=== PATIENT | female | born 1935 | race Caucasian/White ===

== ENCOUNTER → 2018-11-16 10:22 | Day surgery (SDC) | payer MEDICARE ==
[~2018-11-16 10:22] MED LIST: ACETAMINOPHEN PO SCH; Gabapentin CAP(*) 100 MG PO SCH; Heparin(*) 1000 UNIT/ML 10 ML VIAL CATH LAB IV ONE; Iohexol 350 (CONTRAST) 200 ML MDV IV ONE; Lidocaine 1% INJ* 10 MG/ML 30 ML SDV ONE; Metoprolol Succinate XL TAB* 25 MG PO SCH; Midazolam* 1 MG/ML 5 ML VIAL (5 MG) ONE; Multivitamins/Minera Areds(NF) 1 CAP CAP PO SCH; NON FORMULARY MED* (Losartan Potassium [Cozaar] 50 MG) PO SCH; NON FORMULARY MED* (Omeprazole [Omeprazole] 40 MG) PO SCH; NS 0.9% 1000 ML** 1,000 ML IV SCH; Pramipexole TAB* 0.125 MG PO SCH; VERAPAMIL 2.5 MG/ML 2 ML VIAL ** 5 mg/2 ml ONE; amLODIPine TAB* 5 MG PO SCH; fentaNYL* 50 MCG/ML 2 ML VIAL (100 MCG VIAL) ONE; nitroGLYCERIN DRIP* 25,000 MCG/250 ML BTL ONE
[2018-11-16 14:59] VITALS: BP 154/91
--- NOTE | 2018-11-19 08:17 | CATH ---
*[facility]* [place] [address] Main: [phone] [email or web address] Cardiac Catheterization Patient: Steph Elkins : 1935 Study Date: 11/16/2018 Age: 83 Gender: F HR: Height: 62 in /157.5 cm BSA: 1.78 m^2 Weight: 155.1 lb /70.5 kg BMI: 28.4 kg/m^2 Angledozer Operator: Jose Chacon MD Ordering Physician: Jose Chacon MD Referring Physician: Jose Chacon MD, Stefek Paul, --- Jhonathan Peters - Left coronary angiography. Summary: Left posterior descending: Proximal vessel lesion: There is an 85% stenosis. Indications: Aortic Valve Disorder. Asked by Dr. Griffith perform coronary arteriography as part of TAVR evaluation for patient with reported significant aortic stenosis. History: Risk factors: Hypertension. Dyslipidemia. Family history is significant for coronary artery disease. Medications: The patient received no antianginal therapy in the last two weeks. Labs, prior tests, procedures, and surgery: Blood tests: International normalized ratio (INR) of 1. Serum potassium (K) of 4.6 mEq/l. Serum sodium (Na) of 139 mEq/l. Serum creatinine (current admission) of 1.1 mg/dl. Blood urea nitrogen of 28 mg/dl. Glucose of 104 mg/dl. Platelet count of 255 th/ul. White blood cell count (WBC) of 0.01 th/ul. Red blood cell count (RBC) of 3800 th/ul. Hematocrit of 35.5 %. Hemoglobin (pre-procedure) of 11.9 g/dl. Study data: Study status: Cardiac cath: elective. Location: Catheterization laboratory. Consent: The risks, benefits, and alternatives to the procedure were explained to the patient and/or their healthcare solar sales representative and assessor and written informed consent was obtained. All available pre-procedure labs were reviewed. Height: 157.5 cm. 62 in. Weight: 70.5 kg. 155.1 lb. Body surface area: 1.78 m^2. Body mass index: 28.4 kg/m^2. Procedure: 1. Initial setup. The patient was brought to the laboratory. Surface ECG leads, blood pressure measurements, and pulse oximetric signals were monitored. A baseline seven lead ECG was recorded. A time out was observed per protocol. 2. Skin preparation. The planned puncture sites were prepped and draped in the usual sterile manner. 3. Local anesthesia. 1% lidocaine was administered. 4. Local anesthesia. 1% lidocaine (2 ml) was administered. 5. Right radial artery access. A 6F [place] Slender sheath was advanced into the vessel. 6. Supplemental oxygen. Oxygen, 2 L/min was administered throughout the procedure. 7. Selective left coronary angiography. A 5F TIG 4.0 catheter was advanced into the left coronary vessel ostium under fluoroscopic guidance. Contrast was injected. Images were obtained in multiple projections. Despite attempts with multiple catheters, the right coronary artery could not be injected. 8. Right radial artery hemostasis. Vessel closure was achieved with a Regular Vasc Band device. Study completion: Minimal estimated blood loss. All catheters inserted during the procedure were removed. There were no apparent complications. Administered medications: (Radial) Nitroglycerin, 300mcg, intra-arterially. (Radial) Verapamil, 3mg, intra-arterially. (Radial) Heparin, 3,000units, intra-arterially. NaCl 0.9% , infusion , at a rate of 75 ml/hr. Contrast: Omnipaque 350 105 ml (total dose). Omnipaque 350 95 ml (wasted). Radiation: Fluoroscopy dose: 136.2 cGy. Discharge: The patient tolerated the procedure well and was discharged from the lab in stable condition. Findings Coronary arteries: The coronary circulation is believed to be left dominant. The right coronary artery could never be found. The left anterior descending gives rise to 3 diagonals. It courses to the apex and to the distal inferior wall. The left circumflex gives rise to 4 obtuse marginals and the posterior descending artery. Left main: LAD: Mid-vessel lesion: There is a 35% stenosis. Left circumflex: Mid-vessel lesion: There is a 30% stenosis. 2nd obtuse marginal: Proximal vessel lesion: There is a 30% stenosis. Left posterior descending: Proximal vessel lesion: There is an 85% stenosis. Right coronary: Not visualized. It isbelieved to be a nondominant artery given the findings of the circumflex artery. Prepared and electronically signed by Jose Chacon MD 11/19/2018 08:17
== END | disposition home or self-care (01) ==
LOC: CHICATH 10:22
PROVIDERS: ATTEND Internal Medicine Cardiovascular Disease
DX: I35.0 Nonrheumatic aortic (valve) stenosis (principal); I25.10 Atherosclerotic heart disease of native coronary artery without angina pectoris; I10 Essential (primary) hypertension; E78.5 Hyperlipidemia, unspecified; Z82.49 Family history of ischemic heart disease and other diseases of the circulatory system; Z95.0 Presence of cardiac pacemaker; I44.0 Atrioventricular block, first degree
CPT/HCPCS: 76937; 93454; C1887; J1644; J2250; J3010